=== PATIENT | female | born 1990 | race Two or more races ===

== ENCOUNTER 2024-05-14 16:03 | Emergency (ER) | payer MEDICAID, SELFPAY ==
[2024-05-14 16:19] VITALS: BP 143/84; PULSE 85; RESP 16; TEMP 36.6; O2SAT 98; BMI 26.3
--- NOTE | 2024-05-14 16:24 | XR_ITS ---
Examination: Hand, right 3 views Technique: Hand AP, oblique, lateral 3 views Date and time of exam: May 14, 2024 1625 hours INDICATIONS: Injury to the hand today with fifth digit pain. FINDINGS: No acute fracture No dislocation No foreign body IMPRESSION: No acute fracture
--- NOTE | 2024-05-14 16:29 | PD.EDHAND ---
Upper Extremity Injury RME/HPI General Chief Complaint: Hand/Wrist Problems Stated Complaint: RIGHT PINKY INJURY Time Seen by Provider: 05/14/24 16:30 Source: patient Arrival date/time: 05/14/24 16:03 34-year-old female with no known medical history presents to the emergency room with a chief complaint of pain and tenderness to the right pinky after an injury that occurred while closing the garage door 1 hour ago. Mode of arrival: ambulatory Limitations: no limitations Related Data Previous Rx's ?Medication ?Instructions ?Recorded naproxen 500 mg tablet (Naprosyn) 500 mg PO BID PRN pain #60 tabs 10/13/18 diphenhydramine HCl 25 mg capsule 25 mg PO Q8H PRN allergic symptoms 02/16/24 (Benadryl) #30 caps ibuprofen 600 mg tablet 600 mg PO Q8H PRN fever or pain 05/14/24 #20 tabs Allergies Allergy/AdvReac Type Severity Reaction Status Date / Time walnut Allergy Hives Verified 05/14/24 16:04 Review of Systems Review of Systems Systems Reviewed: All systems reviewed, normal except as documented Constitutional Constitutional: Reports system reviewed and no additional complaints, except as documented, Denies fatigue, Denies fever(s), Denies headache(s) and Denies weakness Eyes Eyes: Reports system reviewed and no additional complaints, except as documented, Denies blurry vision and Denies change in vision ENT Ears, Nose, Mouth, and Throat: Reports system reviewed and no additional complaints, except as documented, Denies otalgia, Denies headache(s), Denies nasal congestion, Denies throat swelling and Denies vertigo Cardiovascular Cardiovascular: Reports system reviewed and no additional complaints, except as documented, Denies chest pain, Denies dyspnea and Denies dyspnea on exertion Respiratory Respiratory: Reports system reviewed and no additional complaints, except as documented, Denies chest congestion, Denies cough, Denies dyspnea, Denies dyspnea on exertion and Denies wheezing Gastrointestinal Gastrointestinal: Reports system reviewed and no additional complaints, except as documented, Denies abdominal pain, Denies cramping, Denies nausea and Denies vomiting Genitourinary Genitourinary: Reports system reviewed and no additional complaints, except as documented Musculoskeletal Musculoskeletal: Reports system reviewed and no additional complaints, except as documented, Reports arthralgias, Denies back pain, Reports deformity, Reports joint swelling and Reports limited range of motion Integumentary/Breasts Skin/Breast: Reports system reviewed and no additional complaints, except as documented and Denies wounds Neurologic Neurologic: Reports system reviewed and no additional complaints, except as documented, Denies confusion, Denies headache(s), Denies lack of coordination, Denies vertigo and Denies weakness Psychiatric Psychiatric: Reports system reviewed and no additional complaints, except as documented, Denies anxiety, Denies confusion, Denies depression, Denies paranoia, Denies suicidal ideation and Denies tactile hallucinations Endocrine Endocrine: Reports system reviewed and no additional complaints, except as documented and Denies fatigue Hematologic/Lymphatic Hematologic/Lymphatic: Reports system reviewed and no additional complaints, except as documented and Denies lymphadenopathy Allergic/Immunologic Allergic/Immunologic: Reports system reviewed and no additional complaints, except as documented, Denies throat swelling, Denies urticaria and Denies wheezing Past Medical History Past Medical History CARDIAC: Negative Congestive Heart Failure RESPIRATORY: Negative Chronic Obstructive Pulmonary Disease (COPD) GENITOURINARY: Negative Renal Disease ENDOCRINE: Negative Diabetes Mellitus Type 1 or Diabetes Mellitus Type 2 Social History SMOKING STATUS: Never smoker ED Exam General Limitations: Present no limitations General appearance: Present alert and in no apparent distress Head Head exam: Present atraumatic Eye Eye exam: Present normal appearance, PERRL and EOMI ENT ENT exam: Present normal exam, normal oropharynx and mucous membranes moist Neck Neck exam: Present normal inspection, full ROM and trachea midline Chest Chest inspection: Present normal inspection and symmetric chest wall rise Respiratory Respiratory exam: Present normal lung sounds bilaterally Cardiovascular Cardiovascular exam: Present regular rate, normal rhythm and normal heart sounds Abdominal Exam Abdominal exam: Present soft and normal bowel sounds Extremities Exam Extremities exam: Present normal inspection and full ROM Back Exam Back exam: Present normal inspection and full ROM Neurological Exam Neurological exam: Present alert, oriented X3 and CN II-XII intact Psychiatric Psychiatric exam: Present normal affect and normal mood Skin Skin exam: Present warm, dry, intact and normal color Course Quality Measures none Orders Category Date Time Status XR hand comp RT min 3V Stat Exams 05/14/24 16:24 Completed HYDROcodone*/APAP 5/325 [[place] 5/325] Med 05/14/24 16:24 Discontinued 1 tab PO X1 ONE Vital Signs Vital signs: Vital Signs Temperature 98 F 05/14/24 16:19 Pulse Rate 85 05/14/24 16:19 Respiratory Rate 16 01/30/25 16:19 Blood Pressure 143/84 H 05/14/24 16:19 Pulse Oximetry (%) 98 05/14/24 16:19 Oxygen Delivery Method Room Air 05/14/24 16:19 O2 saturation 98% within normal limits Extremity Injury MDM Narrative MDM Narrative:: 34-year-old female with no known medical history presents to the emergency room with a chief complaint of pain and tenderness to the right pinky after an injury that occurred while closing the garage door 1 hour ago. Patient is hemodynamically stable and in no apparent distress. Patient is having tenderness and pain as well as swelling to the right pinky. Patient has limited range of motion but is able to move it freely. X-ray of the right hand was completed and was negative for any acute fracture or any dislocation. A raquel splint was done to her other finger and a little metal splint was placed for comfort. Patient was discharged and educated to follow-up with primary care provider and return to the emergency room for any evidence of worsening signs or symptoms Patient data External records reviewed:: [facility] previous records Clinical information provided by:: patient Social determinants that could affect healthcare access:: none Patient has the following chronic illnesses:: No chronic illness How is presenting disease/condition affected by chronic disease/condition?: no chronic disease Evaluation data The following diagnostics were reviewed and interpreted by me:: lab results and radiology exam(s) Lab and/or radiology exams considered but not ordered:: Labs and radiology exams considered and ordered Interpretation Summary: Hand x-ray-no acute fracture or dislocation or foreign body Medications / Prescriptions Medications or Prescriptions considered but not ordered:: Medication given Medication administrations:: Medication Administration History Discontinued Medications Hydrocodone Bitart/Acetaminophen (Hydrocodone/Apap 5/325 Tablet) 1 tab PO X1 ONE Stop: 05/14/24 16:25 Last Admin: 05/14/24 17:12 Dose: 1 tab Documented By: Medication given Consultations Consultation(s) initiated? (list below): No Diagnosis Upper Extremity Injury Differential Diagnosis: finger sprain and other (Finger fracture/dislocation of finger) Most likely diagnosis given after review of the tests above:: Finger sprain Admission Indicated Admission indicated?: not indicated Admission Request Was there a request for admission?: No Disposition Plan Disposition Plan: Discharge Discharge Attestation Discharge Attestation: The patient and all family members were given an opportunity to ask questions and understood the discharge instructions. Discharge instructions specifically effects, indications for sooner follow up or return to the emergency department, and the expected course of current diagnosis. Patient condition: Stable Discharge Plan Plan Patient Disposition: HOME (Self Care) Disposition Comment: Stable Prescriptions/Referrals Prescriptions/Med Rec: New ibuprofen 600 mg tablet 600 mg PO Q8H PRN (Reason: fever or pain) Qty: 20 0RF No Action naproxen [Naprosyn] 500 mg tablet 500 mg PO BID PRN (Reason: pain) Qty: 60 0RF diphenhydramine HCl [Benadryl] 25 mg capsule 25 mg PO Q8H PRN (Reason: allergic symptoms) Qty: 30 0RF Problem List Clinical Impression: Finger sprain Patient/Caregiver Discharge Instructions Education Materials: ED Finger Sprain Additional Instructions: Please follow-up with your primary care provider in the next 24 to 48 hours. The x-ray of your hand was completed and was negative for any acute fracture or dislocation. Please rest, ice, and keep the injury elevated For any evidence of worsening signs or symptoms please return to the emergency room immediately Print Language: Nigerien Stand Alone Forms: Michelle Award Info., Patient Portal Info Letter PA/MATTHIAS Supervising Physician ROBERT/MATTHIAS Supervising Physician: Dr. Vargas
[2024-05-14] MEDS: HYDROcodone/APAP 5/325 TABLET 1 TAB PO (17:12)
== END 2024-05-14 17:32 | disposition home or self-care (01) ==
LOC: SERX 17:35
PROVIDERS: Emergency Provider Emergency Medicine; PCP Nurse Practitioner Family
DX: S63.616A Unspecified sprain of right little finger, initial encounter (principal); X58.XXXA Exposure to other specified factors, initial encounter
CPT/HCPCS: 73130; 99283; A9270

== ENCOUNTER 2024-10-24 09:31 | Emergency (ER) | payer MEDICAID, SELFPAY ==
[2024-10-24 09:45] VITALS: BP 125/78; PULSE 85; RESP 20; TEMP 38.4; O2SAT 97; BMI 27.6
--- NOTE | 2024-10-24 09:57 | XR_ITS ---
Examination: CT abdomen and pelvis without contrast. Coronal 3-D reconstructions. Sagittal 2-D reconstructions. Date and time of exam:October 24, 2024, 1013 hrs. Indications: Bilateral back and flank pain 2 weeks with fever CTDI: vol (mGy): 8.97 DLP: (mGycm): 459 Technique: Axial images of the abdomen have been obtained, 3 mm slice thickness Intravenous contrast material has not been administered. Low dose protocols were performed. One or more of the following dose reduction techniques were used; automated exposure control, adjustment of the mA and/or KV according to patient size, use of iterative reconstruction technique. Findings: No focal liver or splenic lesions. No gallstones. No pancreatic mass. No renal calculi Minimal left hydronephrosis, consider left urinary tract infection Aorta normal size No bowel obstruction Normal appendix No pelvic mass Contracted urinary bladder, no bladder mass or bladder calculi Impression: Suspicious for left urinary tract infection No hydronephrosis or ureteral calculi No CT findings of appendicitis or bowel obstruction
--- NOTE | 2024-10-24 09:59 | PD.EDRME ---
Rapid Medical Screening Exam RME Arrival date/time: 10/24/24 09:31 34-year-old female with no significant medical problems presents to the emergency department today for complaints of lower back pain and fever Chief Complaint: Back Pain/Injury Vital signs: Vital Signs Temperature 101.1 F H 10/24/24 09:45 Pulse Rate 85 10/24/24 09:45 Respiratory Rate 20 10/24/24 09:45 Blood Pressure 125/78 10/24/24 09:45 Pulse Oximetry (%) 97 10/24/24 09:45 Oxygen Delivery Method Room Air 10/24/24 09:45
[2024-10-24 11:07] LABS: Lactate (Lactic Acid) 0.9 mMol/L (0.4-2.0)
[2024-10-24 11:29] LABS: Basophils # (Auto) 0.0 Thou/mm3 (0.0-0.2); Basophils % (Auto) 0 % (0-2.5); Eosinophils # (Auto) 0.0 Thou/mm3 (0.0-0.5); Eosinophils % (Auto) 0 % (0-10); Hematocrit 40.9 % (36.0-46.0); Hemoglobin 14.0 g/dL (12.0-16.0); Immature Granulocytes Auto 0.06 Thou/mm3 (0.00-0.00); Lymphocytes # (Auto) 0.8 Thou/mm3 (1.0-4.8); Lymphocytes % (Auto) 7 % (10-50); Mean Corpuscular HGB Conc 34.2 g/dl (31.0-37.0); Mean Corpuscular Hemoglobin 30.9 pg (25.0-35.0); Mean Corpuscular Volume 90 fL (80-100); Monocytes # (Auto) 0.6 Thou/mm3 (0.0-0.8); Monocytes % (Auto) 5 % (0-12); Neutrophils # (Auto) 10.0 Thou/mm3 (1.8-7.7); Neutrophils % (Auto) 87 % (37-80); Nucleated Red Blood Cell # 0.00 Thou/mm3 (0.00-0.00); Nucleated Red Blood Cell % 0 /100 WBC (0); Platelet Count 253 Thou/mm3 (140-440); RDW Standard Deviation 45.2 fL (36.4-46.3); Red Blood Count 4.53 Miln/mm3 (4.00-5.20); White Blood Count 11.5 Thou/mm3 (3.6-11.0)
[2024-10-24 11:36] LABS: Alanine Aminotransferase 50 U/L (10-49); Albumin, Serum 4.9 gm/dL (3.5-5.0); Albumin/Globulin Ratio 1.7 (1.2-2.2); Alkaline Phosphatase 83 U/L (46-116); Anion Gap 10 (7-16); Aspartate Amino Transferase 88 U/L (0-34); BUN/Creatinine Ratio 10 Ratio (12-20); Bilirubin,Total 0.9 mg/dL (0.3-1.2); Blood Urea Nitrogen 9 mg/dL (9-23); Calcium 9.8 mg/dL (8.3-10.6); Calcium (Corrected) 9.8 mg/dL (8.5-10.1); Carbon Dioxide 25.5 mMol/L (20.0-31.0); Chloride 101 mMol/L (98-107); Creatinine (Component) 0.9 mg/dL (0.6-1.3); Estimated Creatinine Clearance 88.6 mL/min (>60); Globulin 2.9 gm/dL (2.3-3.5); Glucose 105 mg/dL (74-106); Osmolality,Calculated 270 (275-295); Potassium 3.8 mMol/L (3.4-5.1); Procalcitonin 0.09 ng/ml (0.0-0.49); Sodium 136 mMol/L (136-145); Total Protein 7.8 gm/dL (5.7-8.2); eGFR > 60 See Note
[2024-10-24 11:45] VITALS: TEMP 38.4
[2024-10-24] MEDS: IBUPROFEN TAB 400 MG TABLET 800 MG PO (11:45)
[2024-10-24 11:53] LABS: Collection Type, Urine Clean Catch; RBC,Urine 0 /hpf (0-3); WBC,Urine 0 /hpf (0-5)
[2024-10-24 12:01] LABS: Bacteria,Urine Rare; Bilirubin,Urine Negative (Negative); Blood,Urine Negative (Negative); Clarity,Urine Clear (Clear/Hazy); Color,Urine Yellow (Lt Yel-Yel); Glucose, Urine Negative (Negative); Ketones,Urine Negative (Negative); Leukocyte Esterase,Urine Negative (Negative); Nitrite,Urine Negative (Negative); PH,Urine 6.0 (5.0-7.0); Protein,Urine 1+ (Neg - Trace); Specific Gravity,Urine 1.027 (1.001-1.035); Squamous Epithelial Cell,Urine 6 /hpf (0-5); Urobilinogen,Urine Negative mg/dL (0.0-1.0)
[2024-10-24 12:02] VITALS: BP 129/75; PULSE 90; RESP 20; TEMP 37.5; O2SAT 98
--- NOTE | 2024-10-24 12:22 | PD.EDBACK ---
ED Back Injury Pain RME/HPI General Chief Complaint: Back Pain/Injury Stated Complaint: BACK INJURY X 1WK; FEVER / NAUSEA TODAY Time Seen by Provider: 10/24/24 12:11 Arrival date/time: 10/24/24 09:31 RME / HPI RME / HPI Narrative: 34-year-old female with no significant medical problems presents to the emergency department today for complaints of lower back pain and fever. Patient's been having low back pain for the last 1 week, comes and goes, severity mild. Today patient noticed low grade fever. Denies any cough denies any dysuria denies any diarrhea denies any sore throat denies any other complaints no medication was taken prior to arrival. Related Data Previous Rx's ?Medication ?Instructions ?Recorded naproxen 500 mg tablet (Naprosyn) 500 mg PO BID PRN pain #60 tabs 10/13/18 diphenhydramine HCl 25 mg capsule 25 mg PO Q8H PRN allergic symptoms 02/16/24 (Benadryl) #30 caps ibuprofen 600 mg tablet 600 mg PO Q8H PRN fever or pain 05/14/24 #20 tabs cyclobenzaprine 10 mg tablet 10 mg PO TID PRN muscle spasm #30 10/24/24 tabs ibuprofen 800 mg tablet 800 mg PO Q8H PRN pain #30 tabs 10/24/24 levofloxacin 750 mg tablet 750 mg PO Q24H 7 days #7 tabs 10/24/24 Allergies Allergy/AdvReac Type Severity Reaction Status Date / Time walnut Allergy Hives Verified 05/14/24 16:04 Review of Systems Review of Systems Narrative Review of Systems: Review of system reviewed and within normal limits except mentioned in HPI ED Exam Narrative Physical exam: VITAL SIGNS: Reviewed. GENERAL APPEARANCE: Alert and interactive, follows commands, no acute distress, HEAD AND FACE: Non-traumatic. ENT: PERRL, pink conjunctivitis, eyelid no trauma, Mucous membrane moist. NECK: Supple, nontender, no nuchal rigidity. CHEST: No tenderness, no crepitus, no paradoxical movement, no retractions. LUNGS: Clear, well ventilated, symmetric, no rales, no wheezing, no ronchi, no stridor, good breath sounds bilaterally. HEART: Regular rate, regular rhythm, no murmur, no gallops. ABDOMEN: Soft, positive bowel sounds, nondistended, no guarding, nontender, no rebound, no masses, RECTAL: Deferred. GENITAL: Deferred. NEUROLOGICAL: Gross motor function intact sensory function intact, Appropriate for age. MUSCULOSKELETAL: low back tenderness, full range of motion. EXTREMITIES: Nontender, full range of motion. SKIN: Color pink, dry, no rash, no lacerations, no abrasions, no contusions. LYMPHATICS: Deferred. Course Quality Measures none Orders Category Date Time Status CT abdomen pelvis wo con Stat Exams 10/24/24 09:57 Completed Blood Culture (Lab) Stat Lab 10/24/24 10:53 Received CBC Stat Lab 10/24/24 10:50 Completed Comprehensive Metabolic Panel Stat Lab 10/24/24 10:50 Completed Lactate (Lactic Acid) Stat Lab 10/24/24 10:50 Completed Procalcitonin Stat Lab 10/24/24 10:50 Completed Urinalysis Stat Lab 10/24/24 11:20 Completed Urine Culture Stat Lab 10/24/24 11:20 Received Ibuprofen Tab [Motrin Tab] Med 10/24/24 09:58 Discontinued 800 mg PO X1 ONE Vital Signs Vital signs: Vital Signs Temperature 101.1 F H 10/24/24 09:45 Pulse Rate 85 10/24/24 09:45 Respiratory Rate 20 10/24/24 09:45 Blood Pressure 125/78 10/24/24 09:45 Pulse Oximetry (%) 97 10/24/24 09:45 Oxygen Delivery Method Room Air 10/24/24 09:45 Back Pain / Injury MDM Narrative MDM Narrative:: 34-year-old female with no significant medical problems presents to the emergency department today for complaints of lower back pain and fever. Patient's been having low back pain for the last 1 week, comes and goes, severity mild. Today patient noticed low grade fever. Denies any cough denies any dysuria denies any diarrhea denies any sore throat denies any other complaints no medication was taken prior to arrival. Laboratory workup came back unremarkable including urinalysis which is very clean no sign of UTI. CT scan of the abdomen showed Suspicious for left urinary tract infection No hydronephrosis or ureteral calculi No CT findings of appendicitis or bowel obstruction At this time I do not suspect any pyelonephritis patient is not having any UTI on the urinalysis. There is no tenderness to the left or right flank area tenderness is on the low back. Patient was advised to closely monitor her symptoms, and return to emergency room right away for worsening fever, dysuria, vomiting. I will send her home on Tylenol and Motrin. And muscle relaxant. Patient data External records reviewed:: None Clinical information provided by:: patient Social determinants that could affect healthcare access:: none Patient has the following chronic illnesses:: None How is presenting disease/condition affected by chronic disease/condition?: no chronic disease Evaluation data The following diagnostics were reviewed and interpreted by me:: lab results and radiology exam(s) Lab and/or radiology exams considered but not ordered:: None Interpretation Summary: See results MDM Medications / Prescriptions Medications or Prescriptions considered but not ordered:: Motrin Medication administrations:: Medication Administration History Discontinued Medications Ibuprofen (Ibuprofen Tab 400 Mg Tablet) 800 mg PO X1 ONE Stop: 10/24/24 09:59 Last Admin: 10/24/24 11:45 Dose: 800 mg Documented By: DB None Consultations Consultation(s) initiated? (list below): No Diagnosis Differential diagnosis back pain/injury: lumbar radiculopathy, pyelonephritis and other ( low back pain) Most likely diagnosis given after review of the tests above:: Low back pain, fever Admission Indicated Admission indicated?: not indicated Admission Request Was there a request for admission?: No Disposition Plan Disposition Plan: Discharge Discharge Attestation Discharge Attestation: The patient and all family members were given an opportunity to ask questions and understood the discharge instructions. Discharge instructions specifically effects, indications for sooner follow up or return to the emergency department, and the expected course of current diagnosis. Patient condition: Stable Discharge Plan Plan Patient Disposition: HOME (Self Care) Prescriptions/Referrals Prescriptions/Med Rec: New ibuprofen 800 mg tablet 800 mg PO Q8H PRN (Reason: pain) Qty: 30 0RF cyclobenzaprine 10 mg tablet 10 mg PO TID PRN (Reason: muscle spasm) Qty: 30 0RF levofloxacin 750 mg tablet 750 mg PO Q24H 7 Days Qty: 7 0RF No Action naproxen [Naprosyn] 500 mg tablet 500 mg PO BID PRN (Reason: pain) Qty: 60 0RF diphenhydramine HCl [Benadryl] 25 mg capsule 25 mg PO Q8H PRN (Reason: allergic symptoms) Qty: 30 0RF ibuprofen 600 mg tablet 600 mg PO Q8H PRN (Reason: fever or pain) Qty: 20 0RF Referrals: Alvin Maddox[facility]MD [Primary Care Provider] - In 1 week Problem List Clinical Impression: Fever, Back pain Patient/Caregiver Discharge Instructions Education Materials: Back Exercises: Back Press Additional Instructions: Thank you for the opportunity for serving you today. You are stable for discharged . You are advised to: Follow-up with your PCP in 1 to 2 days Return to ED for worsening of symptoms Increase oral fluids Take medication as prescribed If you continue to have fever, take your Levaquin starting tomorrow morning for 7 days Print Language: Barbadian Stand Alone Forms: Michelle Award Info., Patient Portal Info Letter PA/MATTHIAS Supervising Physician ROBERT/MATTHIAS Supervising Physician: MD Alysha
[2024-10-24 12:45] VITALS: TEMP 37.7
== END 2024-10-24 12:45 | disposition home or self-care (01) ==
PROVIDERS: Nurse Practitioner Primary Care; Emergency Provider Family Medicine; PCP Family Medicine
DX: R50.9 Fever, unspecified (principal); M54.50 Low back pain, unspecified; R10.9 Unspecified abdominal pain
CPT/HCPCS: 36415; 74176; 80053; 81001; 83605; 84145; 85025; 87040; 87086; 99283; A9270

== ENCOUNTER 2024-11-29 00:17 | Emergency (ER) | payer MEDICAID, SELFPAY ==
[2024-11-29 00:23] VITALS: BMI 27.1
[2024-11-29 00:30] VITALS: BP 122/74; PULSE 95; RESP 20; TEMP 36.7; O2SAT 96
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
== END 2024-11-29 00:53 ==
LOC: SERX 01:23
PROVIDERS: Emergency Provider Emergency Medicine
DX: Z02.89 Encounter for other administrative examinations (principal)
CPT/HCPCS: 99282